=== PATIENT | female | born 1975 | race Caucasian/White ===

== ENCOUNTER 2023-11-25 17:24 | Emergency (ER) | payer OTHER ==
[~2023-11-25] VITALS: Ht 157.5 cm; Wt 87.0 kg
[2023-11-25 18:04] VITALS: BP 124/76; PULSE 90; RESP 12; TEMP 98.3; O2SAT 98
[2023-11-25 19:20] LABS: CLARITY URINE CLOUDY (CLEAR); COLOR URINE RED (YELLOW); GLUCOSE URINE NEGATIVE (NEGATIVE); KETONES URINE NEGATIVE (NEGATIVE); LEUKOCYTE ESTERASE URINE 1+ (NEGATIVE); NITRITE URINE NEGATIVE (NEGATIVE); OCCULT BLOOD URINE 3+ (NEGATIVE); PROTEIN URINE 1+ (NEGATIVE); SPECIFIC GRAVITY URINE 1.022 (1.005-1.030); UROBILINOGEN URINE 0.2 E.U./dL (0.2-1.0)
[2023-11-25 19:40] LABS: BACTERIA URINE NONE SEEN; RBC URINE 50-100 /hpf (0-2); SQUAMOUS EPITHELIAL CELL URINE 1+ /lpf (RARE/1+)
[2023-11-25 20:01] LABS: BASOPHILS % 0.8 % (0.0-2.0); EOSINOPHILS % 3.2 % (0.0-5.0); HEMOGLOBIN. 10.6 g/dL (12.0-16.0); MEAN CORPUSCULAR HEMOGLOBIN 29.8 pg (28.0-32.0); MEAN CORPUSCULAR HGB CONC 34.2 g/dL (31.0-37.0); MEAN CORPUSCULAR VOLUME 87.1 fL (81.0-99.0); MEAN PLATELET VOLUME 8.3 fl (7.4-10.4); MONOCYTES % 7.5 % (2.0-8.0); NEUTROPHILS % 65.5 % (40.0-76.0); PLATELET 425 x1000/uL (130-400); RED BLOOD CELL COUNT 3.55 mill/uL (4.2-5.4); RED CELL DISTRIBUTION WIDTH 13.2 % (11.6-14.6); WHITE BLOOD COUNT 12.3 x1000/uL (4.5-11.0)
[2023-11-25 20:10] LABS: HCG SCREEN NEGATIVE
[2023-11-25] MEDS: SODIUM CHLORIDE 0.9% 1,000 ML IV ONE (22:45)
[2023-11-25 23:47] LABS: CHLORIDE 105 mEq/L (98-107); POTASSIUM 4.7 mEq/L (3.5-5.1); SODIUM 138 mEq/L (136-145)
[2023-11-25 23:48] LABS: CALCIUM 9.8 mg/dL (8.7-10.4); CARBON DIOXIDE 28 mEq/L (21-32)
[2023-11-25 23:53] LABS: CREATININE 0.7 mg/dL (0.6-1.0); GLUCOSE 105 mg/dL (70-105); UREA NITROGEN BLOOD 14 mg/dL (9-23)
[2023-11-25 23:55] LABS: ALANINE AMINOTRANSFERASE 49 IU/L (10-49); ALBUMIN 4.6 g/dL (3.2-4.8); ASPARTATE AMINOTRANSFERASE 28 IU/L (<34)
[2023-11-25 23:56] LABS: BILIRUBIN TOTAL 0.2 mg/dL (0.1-1.0)
[2023-11-26] MEDS ORDERED: NITR-87 MT (00:34)
== END 2023-11-26 00:46 | disposition home or self-care (01) ==
LOC: ER 17:24
DX: N93.8 Other specified abnormal uterine and vaginal bleeding (principal); R82.71 Bacteriuria; I10 Essential (primary) hypertension
CPT/HCPCS: 99284; 96360; 76830; 76856; 96361; 80053; 81003; 84703; 85025; 86850; 86900; 86901; 36415; J7030